=== PATIENT | female | born 2005 | race Hispanic/Latino ===

== ENCOUNTER 2025-04-01 10:16 | Emergency (ER) | payer OTHER ==
[~2025-04-01] VITALS: Ht 167.6 cm; Wt 79.8 kg
[2025-04-01] MEDS ORDERED: OMEPRAZOLE20 MG PO (11:19)
[2025-04-01 11:40] LABS: BASOPHILS 0.4 % (0.1-1.2); EOSINOPHILS 0.5 % (0.7-5.8); LYMPHOCYTES 32.1 % (19.3-51.7); MCH 30.7 PG (25.6-32.2); MCHC 34.6 g/dL (32.2-35.5); MCV 88.8 fL (79.4-94.8); MONOCYTES 7.5 % (4.7-12.5); NEUTROPHILS 59.3 % (34.0-71.1); RBC 4.72 M/uL (3.93-5.22)
[2025-04-01 11:55] LABS: BLOOD/HGB, URINE NEGATIVE (Negative); KETONE, URINE TRACE (Negative); LEUK ESTERASE, URINE NEGATIVE (negative); NITRITE, URINE NEGATIVE (negative)
[2025-04-01 11:58] LABS: ALT (SGPT) 16.0 U/L (14-59); AST (SGOT) 13.0 U/L (15-37); GLOMERULAR FILTRATION RATE,EST 107.0 mL/min (>60); PROTEIN, TOTAL 8.3 g/dL (6.4-8.2); UREA NITROGEN 12.0 mg/dL (7-18)
[2025-04-01] MEDS ORDERED: PEPCID20 MG PO (12:12)
[2025-04-01] MEDS ORDERED: CARAFATE1 GM PO (12:12)
[2025-04-01 12:43] VITALS: BP 113/68
== END 2025-04-01 12:44 | disposition home or self-care (01) ==
LOC: ED 10:16
PROVIDERS: Emergency Medicine
DX: R10.13 Epigastric pain (principal); Z79.899 Other long term (current) drug therapy
CPT/HCPCS: 36415; 80053; 81003; 83690; 84703; 85025; 96374; 99284-25; J2405